=== PATIENT | male | born 1950 ===

== ENCOUNTER 2024-01-30 17:09 | Emergency (ER) | payer MEDICARE, SELFPAY ==
[2024-01-30 17:25] VITALS: BP 128/71; PULSE 71; RESP 16; TEMP 36.7; O2SAT 99; BMI 27.3
--- NOTE | 2024-01-30 17:25 | ED_ITS ---
HPI - Skin/Abscess/Foreign Bdy General Chief complaint: Wound/Laceration Stated complaint: small puncture wound in wrist Related Data Allergies Allergy/AdvReac Type Severity Reaction Status Date / Time No Known Allergies Allergy Verified 01/30/24 17:25 [facility] Social History Social History Advance Directives: No Advance Directives Information Provided: No Do you have a plan to hurt others: No Plan Physical Exam Vital Signs: Vital Signs: Last Vital Signs Temp 98.0 F 01/30/24 17:25 Pulse 71 01/30/24 17:25 Resp 16 01/30/24 17:25 BP 128/71 01/30/24 17:25 Pulse Ox 99 01/30/24 17:25 O2 Del Method Room Air 01/30/24 17:25 BMI result Body Mass Index 27.3 Course Course Course Narrative: This is a Rapid Medical Examination (RME) performed by Vinicius Valdovinos PA-C in triage. Full HPI, ROS, assessment and treatment plan per primary provider in the Main ED. 73 yo male here w/ puncture wound to ventral aspect of left forearm sustained [employer] when he accidently clipped himself with gardening sheers. EMS was called, dressed the wound and advised pt come to the ED for sutures. not on AC. Tetanus updated 1 yr ago. + laceration dressed in triage, not visualized Plan: +/- suture repair Reevaluation(s) Reevaluation #1: Patient left the emergency department before myself or any of the other clinicians could review or explain physical exam findings, test results, need or lack there of for additional testing, treatment options, or a treatment plan. Discharge Plan Discharge Clinical Impression: Laceration Patient Disposition: Left W/O Completing Treatment Discharge Date/Time: 01/31/24 00:12
== END 2024-01-31 00:12 | disposition left against medical advice (07) ==
LOC: HO.ED 01-31 00:04
PROVIDERS: Emergency Provider Emergency Medicine
DX: S61.532A Puncture wound without foreign body of left wrist, initial encounter (principal); W27.1XXA Contact with garden tool, initial encounter; Y93.89 Activity, other specified; Y92.9 Unspecified place or not applicable; Y99.9 Unspecified external cause status; Z53.21 Procedure and treatment not carried out due to patient leaving prior to being seen by health care provider
CPT/HCPCS: 99281